=== PATIENT | female | born 1960 | race Caucasian/White ===

== ENCOUNTER → 2016-10-18 | Outpatient (CLI) | payer OTHER ==
[~2016-10-18] MED LIST: ASCA500 PO; BUTA1CAP17 PO; CALC8.5C PO; FIBER GUMMY PO; FURO-85 PO; OMEG10007 PO; OPTIRAY 320 IV PRN; VTME100 PO
--- NOTE | 2016-10-18 12:31 | DIAGNOSTIC IMAGING REPORT ---
CT SCAN OF THE ABDOMEN COMBO LIVER PROTOCOL CLINICAL HISTORY: Abnormal hepatic transaminases. Lower extremity edema. COMPARISON STUDY: No priors. TECHNIQUE: Before and following the IV administration of 93 cc of Optiray 320, CT scan of the abdomen is performed from the lung bases to the pelvic inlet utilizing the liver protocol. Images are reviewed in the axial, sagittal, and coronal planes. IV contrast was administered without complication. Automated dose control exposure was utilized. The examination is degraded by a paucity of intra-abdominal fat. CT DOSE: 761.68 mGy.cm FINDINGS: Lung bases: The heart is normal in size and without pericardial effusion. The lung bases are clear. Liver: The contrast-enhanced liver is normal and markedly heterogeneous in attenuation. There is nodularity of the hepatic surface contour. There is no intrahepatic biliary ductal dilatation. 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 The hepatic veins and portal veins are widely patent. The splenic vein is patent. The hepatic veins and portal veins are distended. The inferior vena cava is distended and there is reflux of contrast in the IVC and hepatic veins noted on the arterial phase images. Gallbladder: Unremarkable. Spleen: Normal in size and attenuation. Pancreas: Unremarkable. Adrenal glands: Unremarkable. Kidneys: There is a punctate nonobstructing calculus in the upper pole of left kidney. No right renal calculi are seen. The contrast enhanced kidneys are normal in size and without hydronephrosis. The kidneys enhance and excrete symmetrically. Abdominal vasculature: The abdominal aorta is normal in course and caliber noting mild atherosclerotic calcification. Bowel: Visualized portions of the small bowel and colon are normal in course and caliber. There is severe constipation. Peritoneum: There is a small volume of perihepatic and perisplenic ascites. No peritoneal free air is seen. Lymphadenopathy: None. Skeletal structures: No lytic or blastic lesions are seen. Soft tissues: The patient is cachectic. IMPRESSION: 1. The liver is markedly heterogeneous in attenuation and there is mild nodularity of the surface contour suggesting early change of cirrhosis. The appearance is nonspecific, and this could represent hepatocellular disease, congestive hepatopathy (the IVC and hepatic veins are significantly distended and show evidence of reflux), or even venoocclusive disease. 2. The hepatic veins, portal veins, and hepatic artery are patent. 3. There is upper abdominal ascites. 4. The spleen is normal in size. 5. Severe constipation. Electronically signed by: Jesus Steel M.D. 10/18/2016 12:30 PM Dictated Date/Time: 10/18/2016 12:12 PM
== END | disposition home or self-care (01) ==
LOC: C.CTS 11:36
PROVIDERS: ATTEND Internal Medicine Gastroenterology
DX: R79.89 Other specified abnormal findings of blood chemistry (principal)

== ENCOUNTER 2016-11-01 09:03 | Day surgery (SDC) | payer OTHER ==
[2016-10-29 08:44] VITALS: BMI 16.0
[~2016-11-01] VITALS: Ht 160 cm; Wt 41.0 kg
--- NOTE | 2016-11-01 08:29 | Endo History and Physical ---
History & Physical Date of Service: November 01, 2016. Chief Complaint: Elevated liver tests Referring Physician: Dr. Oakley History of Present Illness History of elevated liver enzymes, referred for EUS and EGD, requested eus guided liver biopsy for further evaluation of LFT abnormalities. Past Surgical History Hx Cardiac Surgery: No Hx Abdominal Surgery: Yes (TUBAL) Hx Post-Op Nausea and Vomiting: No Hx Cancer Surgery: No Hx Thoracic Surgery: No Hx Orthopedic: No Hx Urinary Tract Surgery: No Social History Smoking Status: Never Smoker Hx Substance Use: No Hx Alcohol Use: No Allergies Coded Allergies: Amoxicillin (Verified Allergy, Unknown, RASH, 11/01/16) Doxycycline (Verified Allergy, Unknown, ANAPHYLAXIS, 11/01/16) THROAT SWELLS Current Medications Reported Home Medications Medications Dose Route/Sig Max Daily Dose Days Date Category Vitamin E (Tocopheryl Acet,Dl-Alpha) 100 Interunit Cap 1 Cap PO NOON 10/29/16 Reported Lasix (Furosemide) 20 Mg Tab 20 Mg PO DAILY PRN 10/29/16 Reported Viactiv (Calcium W/ Vitamins D & K) 1 Chw Chw 1 Tab PO BID 10/29/16 Reported [place]-3 (Fish Oil) 1 Ea Cap 1 Cap PO NOON 10/29/16 Reported [Fiber Gummy] 2 Tab PO BID 10/29/16 Reported Vitamin C (Ascorbic Acid) 500 Mg Tab 1 Tab PO BID 10/29/16 Reported Fioricet (Zqcdwzhwme-Xjttkpxsqppoh-Mraof) 1 Cap Cap 1 Cap PO PRN PRN 10/29/16 Reported Vital Signs Weight (Kilograms): 41 Height (Feet): 5 Height (Inches): 3 Physical Exam General Appearance: no apparent distress Respiratory/Chest: Auscultation: breath sounds normal Cardiovascular: Heart Auscultation: RRR Abdomen: Inspection & Palpation: soft Assessment and Plan We have discussed the risks of egd / eus with liver biopsy to include bleeding , infection, pain, bile leak, pancreatitis and insufficient cellularity. Plan EGD EUS with liver biopsy
[~2016-11-01 09:03] MED LIST changes: +FENTANYL CITRATE INJ 50 MCG/1 ML 2 ML VIAL ONE; +KETAMINE HCL INJ 50 MG/ML 10 ML VIAL ONE; +LACTATED RINGER'S 1000ML 1,000 ML IV SCH; +MIDAZOLAM HCL 1 MG/ML 2ML VIAL ONE; -OPTIRAY 320 IV PRN
[2016-11-01 09:29] VITALS: BP 124/59; PULSE 55; TEMP 36.5; O2SAT 100; Ht 160 cm; Wt 41.0 kg
[2016-11-01] MEDS ORDERED: LACTATED RINGER'S 1000ML 1,000 ML IV PRN (09:59)
[2016-11-01] MEDS ORDERED: ONDANSETRON INJ 2 MG/ML 2 ML VIAL IV PRN ×2 (10:00→11:15)
[2016-11-01] MEDS ORDERED: FENTANYL CITRATE INJ 50 MCG/1 ML 2 ML VIAL IV PRN (10:00)
--- NOTE | 2016-11-01 10:39 | GI REPORT ---
Procedure Date: 11/01/2016 10:29 AM Procedure: Upper GI endoscopy Indications: Portal hypertension with suspected esophageal varices Medicines: Monitored Anesthesia Care Complications: No immediate complications. Estimated blood loss: Minimal. Estimated Blood Loss: Estimated blood loss was minimal. Procedure: Pre-Anesthesia Assessment: - Prior to the procedure, a History and Physical was performed, and patient medications, allergies and sensitivities were reviewed. The patient's tolerance of previous anesthesia was reviewed. - The risks and benefits of the procedure and the sedation options and risks were discussed with the patient. All questions were answered and informed consent was obtained. - Patient identification and proposed procedure were verified prior to the procedure by the physician, the nurse and the oil developer. The procedure was verified in the procedure room. - Pre-procedure physical examination revealed no contraindications to sedation. - ASA Grade Assessment: II - A patient with mild systemic disease. - After reviewing the risks and benefits, the patient was deemed in satisfactory condition to undergo the procedure. - The anesthesia plan was to use monitored anesthesia care (MAC). After obtaining informed consent, the endoscope was passed under direct vision. Throughout the procedure, the patient's blood pressure, pulse, and oxygen saturations were monitored continuously. The scope was introduced through the mouth, and advanced to the third part of duodenum. The upper GI endoscopy was accomplished without difficulty. The patient tolerated the procedure well. Findings: The examined esophagus was normal. The Z-line was regular and was found 36 cm from the incisors. Diffuse mild inflammation characterized by congestion (edema), erythema and granularity was found in the entire examined stomach. Biopsies were taken with a cold forceps for histology. Estimated blood loss was minimal. The examined duodenum was normal. Biopsies for histology were taken with a cold forceps for for evaluation of celiac disease. Estimated blood loss was minimal. Impression: - Normal esophagus. - Z-line regular, 36 cm from the incisors. - Gastritis. Biopsied. - Normal examined duodenum. Biopsied. Recommendation: - Perform an upper endoscopic ultrasound (UEUS) today. - Await pathology results. Cheikh Rowland D.O. Cheikh Rowland DO 11/01/2016 10:39:20 AM This report has been signed electronically. Note Initiated On: 11/01/2016 10:29 AM I attest to the content of the Intraoperative Record and orders documented therein, exceptions below
[2016-11-01] MEDS ORDERED: PROPOFOL IV EMULSION 10 MG/ML 20 ML VIAL IV ONE (10:44)
[2016-11-01] MEDS ORDERED: LIDOCAINE HCL 2% 2 ML VIAL (20MG/ML) ONE (10:44)
[2016-11-01] MEDS ORDERED: SODIUM CHLORIDE 0.9% INJ 10 ML VIAL ONE (10:57)
--- NOTE | 2016-11-01 11:16 | GI REPORT ---
Procedure Date: 11/01/2016 10:39 AM Procedure: Upper EUS Indications: Abnormal liver function test Medicines: Monitored Anesthesia Care Complications: No immediate complications. Estimated blood loss: Minimal. Estimated Blood Loss: Estimated blood loss was minimal. Procedure: Pre-Anesthesia Assessment: - Prior to the procedure, a History and Physical was performed, and patient medications, allergies and sensitivities were reviewed. The patient's tolerance of previous anesthesia was reviewed. - The risks and benefits of the procedure and the sedation options and risks were discussed with the patient. All questions were answered and informed consent was obtained. - Patient identification and proposed procedure were verified prior to the procedure by the physician, the nurse and the hr coordinator. The procedure was verified in the procedure room. - Pre-procedure physical examination revealed no contraindications to sedation. - ASA Grade Assessment: II - A patient with mild systemic disease. - After reviewing the risks and benefits, the patient was deemed in satisfactory condition to undergo the procedure. - The anesthesia plan was to use monitored anesthesia care (MAC). - Immediately prior to administration of medications, the patient was re-assessed for adequacy to receive sedatives. - The heart rate, respiratory rate, oxygen saturations, blood pressure, adequacy of pulmonary ventilation, and response to care were monitored throughout the procedure. - The physical status of the patient was re-assessed after the procedure. After obtaining informed consent, the endoscope was passed under direct vision. Throughout the procedure, the patient's blood pressure, pulse, and oxygen saturations were monitored continuously. The Endosonoscope was introduced through the mouth, and advanced to the second part of duodenum. The Endosonoscope was introduced through the mouth, and advanced to the second part of duodenum. The upper EUS was accomplished without difficulty. The patient tolerated the procedure well. Findings: Endosonographic Finding : There was no sign of significant endosonographic abnormality in the ampulla. No masses were identified. There was no sign of significant endosonographic abnormality in the common bile duct. The maximum diameter of the duct was 4 mm. No stones, no biliary sludge and ducts of normal caliber were identified. There was no sign of significant endosonographic abnormality in the entire pancreas. The pancreatic duct measured up to 2 mm in diameter in the head and 1 mm in the body. The pancreas was well visualized, the pancreatic duct was thin in caliber. No lymphadenopathy seen. There was no sign of significant endosonographic abnormality in the visualized portion of the liver. Homogeneous parenchyma and no focal pathology were identified. Fine needle biopsy was performed. Color Doppler imaging was utilized prior to needle puncture to confirm a lack of significant vascular structures within the needle path. Three passes were made with the 19 gauge ultrasound core biopsy needle ([employer] Pro-Core) using a transgastric approach and using a transduodenal approach (2 in the left lobe and 1 in the right lobe). A visible core of tissue was obtained. Final cytology results are pending. Estimated blood loss was minimal. Impression: - There was no sign of significant pathology in the ampulla. - There was no sign of significant pathology in the common bile duct. - There was no sign of significant pathology in the entire pancreas. - There was no evidence of significant pathology in the visualized portion of the liver. Fine needle biopsy performed. Recommendation: - Observe patient in same day observation unit for 2 hours for observation. - Advance diet as tolerated today. - No aspirin, ibuprofen, naproxen, or other non-steroidal anti-inflammatory drugs for 1 week after biopsy. - Await path results. Cheikh Rowland D.O. Cheikh Rowland DO 11/01/2016 11:15:32 AM This report has been signed electronically. Note Initiated On: 11/01/2016 10:39 AM I attest to the content of the Intraoperative Record and orders documented therein, exceptions below
--- NOTE | 2016-11-01 11:17 | [facility] Post Operative Brief Note ---
Immediate Operative Summary Operative Date November 01, 2016. Pre-Operative Diagnosis elevated liver enzymes Post-Operative Diagnosis suspect autoimmune hepatitis Procedure(s) Performed Upper Endoscopic Ultrasonography; Esophagogastroduodenoscopy Surgeon Dr. Cheikh Rowland Professor Sculpture Surgeon(s) None Estimated Blood Loss 0 ml Findings Normal common bile duct Normal pancreas Liver biopsy obtained. Specimens 1) Duodenum 2) Stomach 3) Liver Anesthesia MAC Complication(s) None Disposition Recovery Room / PACU
--- NOTE | 2016-11-01 11:19 | Discharge Instructions ---
Endoscopy Patient Instructions Date / Procedure(s) Performed November 01, 2016. EGD, Other (Endoscopic ultrasound with liver biopsy) Allergy Information Coded Allergies: Amoxicillin (Verified Allergy, Unknown, RASH, 11/01/16) Doxycycline (Verified Allergy, Unknown, ANAPHYLAXIS, 11/01/16) THROAT SWELLS Discharge Date / Findings November 01, 2016. Medication Instructions Reported Home Medications Medications Dose Route/Sig Max Daily Dose Days Date Category Vitamin E (Tocopheryl Acet,Dl-Alpha) 100 Interunit Cap 1 Cap PO NOON 10/29/16 Reported Lasix (Furosemide) 20 Mg Tab 20 Mg PO DAILY PRN 10/29/16 Reported Viactiv (Calcium W/ Vitamins D & K) 1 Chw Chw 1 Tab PO BID 10/29/16 Reported [place]-3 (Fish Oil) 1 Ea Cap 1 Cap PO NOON 10/29/16 Reported [Fiber Gummy] 2 Tab PO BID 10/29/16 Reported Vitamin C (Ascorbic Acid) 500 Mg Tab 1 Tab PO BID 10/29/16 Reported Fioricet (Mdgoyefraz-Uosmkfdlykfcz-Skbay) 1 Cap Cap 1 Cap PO PRN PRN 10/29/16 Reported Provider Instructions Activity Restrictions - No exercising or heavy lifting for 24 hours. - Do not drink alcohol the day of the procedure. - Do not drive a car or operate machinery until the day after the procedure. - Do not make any important decisions or sign important papers in 24 hours after the procedure. Following Day: - Return to full activity which may include returning to work/school. Diet Start your diet with liquids and light foods (jello, soup, juice, toast). Then eat your usual diet if not nauseated. Treatment For Common After Affects For mild abdominal pain, bloating, or excessive gas: - Rest - Eat lightly - Lie on right side Follow-Up Information Follow-up with Dr. Oakley in 2 to 4 weeks No NSAIDS for 1 week please Anesthesia Information What You Should Know You have had a procedure that required some medicine to reduce anxiety and discomfort. This treatment is called moderate sedation. After receiving the treatment, you may be sleepy, but you will be able to breathe on your own. The effects of the treatment may last for several hours. Follow these instructions along with Activity/Diet recommendations noted above: * Do NOT do anything where dizziness or clumsiness would be dangerous. * Rest quietly at home today, then you can be up and about tomorrow. * Have a responsible person stay with you the rest of today. * You may have had an I.V. today. If so, you may take the dressing off later today. Recommendations Call your doctor if: * Trouble breathing * Continuous vomiting for more than 24 hours * Temperature above 101 degrees * Severe abdominal pain or bloating * Pain not relieved by pain medicine ordered * There is increased drainage or redness from any incision * A large amount of rectal bleeding greater than 2-3 tablespoons. (If you had a polyp/s removed or have hemorrhoids, a small amount of blood - from the rectum is to be expected.) * You have any unanswered questions or concerns. IN THE EVENT OF A SERIOUS EMERGENCY, GO TO THE NEAREST EMERGENCY ROOM Your discharge instructions were prepared by provider Cheikh Rowland. Patient Instructions Signature Page [employer] Patient (or Guardian) Signature/Date: I have read and understand the instructions given to me by my caregivers. Caregiver/RN/Doctor Signature/Date: The above-named patient and/or guardian has received patient instructions on this date. + Original Patient Signature Page (only) stays with chart. Please make copy for patient.
--- NOTE | 2016-11-01 11:26 | Anesthesiology Progress Note ---
Anesthesia Post Op Note Date & Time November 01, 2016 at 11:26 Vital Signs Pain Intensity: 0 Vital Signs Past 12 Hours Date Time Temp Pulse Resp B/P Pulse Ox O2 Delivery O2 Flow Rate FiO2 11/01/16 11:20 36.4 131/70 11/01/16 11:17 54 16 11/01/16 11:17 53 16 100 11/01/16 11:15 124/83 11/01/16 11:12 50 10 100 11/01/16 11:12 51 10 11/01/16 11:10 111/65 11/01/16 11:07 53 12 100 11/01/16 11:07 53 12 11/01/16 11:02 36.5 53 16 110/66 100 Nasal Cannula 3 11/01/16 09:29 36.5 55 20 124/59 100 Room Air Notes Mental Status: alert / awake / arousable, participated in evaluation Pt Amnestic to Procedure: Yes Nausea / Vomiting: adequately controlled Pain: adequately controlled Airway Patency, RR, SpO2: stable & adequate BP & HR: stable & adequate Hydration State: stable & adequate Anesthetic Complications: no major complications apparent Pt sleepy but doing well.
[2016-11-01 11:30] VITALS: BP 128/65; PULSE 53; TEMP 36.5; O2SAT 100
[2016-11-01 12:00] VITALS: BP 138/81; PULSE 49; TEMP 36.6; O2SAT 100
[2016-11-01 12:30] VITALS: BP 123/78; PULSE 51; TEMP 36.8; O2SAT 100
== END 2016-11-01 13:03 | disposition home or self-care (01) ==
LOC: C.ACU 09:03
PROVIDERS: ATTEND Internal Medicine Gastroenterology
DX: K29.50 Unspecified chronic gastritis without bleeding (principal); K74.0 Hepatic fibrosis; K76.6 Portal hypertension; Z79.899 Other long term (current) drug therapy